=== PATIENT | female | born 1955 | race Caucasian/White ===

== ENCOUNTER 2017-06-19 16:28 | Emergency (ER) | payer OTHER ==
[~2017-06-19] VITALS: Ht 165.1 cm; Wt 74.0 kg
[2017-06-19] MEDS ORDERED: LOSARTAN POT100 MG PO (16:46)
[2017-06-19] MEDS ORDERED: CATAPRES-T0.2 MG/21 TD (16:46)
[2017-06-19 16:52] LABS: URINE BILIRUBIN - DIPSTICK NEGATIVE (NEGATIVE); URINE BLOOD DIPSTICK NEGATIVE (NEGATIVE); URINE COLOR YELLOW; URINE GLUCOSE - DIPSTICK NEGATIVE (NEGATIVE); URINE KETONE NEGATIVE (NEGATIVE); URINE NITRITE - DIPSTICK NEGATIVE (Negative); URINE PROTEIN - DIPSTICK NEGATIVE (NEG-TRACE); URINE SPECIFIC GRAVITY >=1.030; URINE UROBILINOGEN - DIPSTICK 0.2 E.U./dL (0.2)
[2017-06-19 16:54] LABS: URINE CLARITY CLEAR; URINE LEUK ESTERASE SMALL (NEGATIVE)
[2017-06-19] MEDS ORDERED: PYRIDIUM200 MG PO (16:55)
[2017-06-19] MEDS ORDERED: KEFLEX500 MG PO (16:55)
[2017-06-19 17:02] LABS: URINE RBC 0-2 RBC/hpf (0-5); URINE SQUAMOUS EPITHELIAL CELL FEW EPI/hpf (0-FEW)
[2017-06-19 17:05] VITALS: BP 149/84
== END 2017-06-19 17:05 | disposition home or self-care (01) | DRG 690 ==
LOC: ED 16:28
PROVIDERS: Emergency Medicine
DX: N39.0 Urinary tract infection, site not specified (principal); I10 Essential (primary) hypertension

== ENCOUNTER 2017-09-20 14:51 | Emergency (ER) | payer OTHER ==
[~2017-09-20] VITALS: Ht 165.1 cm; Wt 74.8 kg
[~2017-09-20 14:51] MED LIST: CATAPRES-T0.2 MG/21 TD; KEFLEX500 MG PO; LOSARTAN POT100 MG PO; PYRIDIUM200 MG PO
[2017-09-20] MEDS ORDERED: PYRIDIUM200 MG PO (15:09)
[2017-09-20] MEDS ORDERED: KEFLEX500 M1 PO (15:09)
[2017-09-20 15:20] VITALS: BP 157/84
[2017-09-20 15:24] LABS: URINE BILIRUBIN - DIPSTICK NEGATIVE (NEGATIVE); URINE BLOOD DIPSTICK SMALL (NEGATIVE); URINE COLOR YELLOW; URINE GLUCOSE - DIPSTICK NEGATIVE (NEGATIVE); URINE KETONE NEGATIVE (NEGATIVE); URINE LEUK ESTERASE TRACE (NEGATIVE); URINE NITRITE - DIPSTICK NEGATIVE (Negative); URINE PROTEIN - DIPSTICK NEGATIVE (NEG-TRACE); URINE SPECIFIC GRAVITY >=1.030; URINE UROBILINOGEN - DIPSTICK 0.2 E.U./dL (0.2)
[2017-09-20 15:40] LABS: URINE CLARITY CLOUDY
[2017-09-20 15:41] LABS: URINE BACTERIA FEW hpf; URINE RBC 25-50 RBC/hpf (0-5); URINE SQUAMOUS EPITHELIAL CELL FEW EPI/hpf (0-FEW)
== END 2017-09-20 15:20 | disposition home or self-care (01) | DRG 690 ==
LOC: ED 14:51
PROVIDERS: Emergency Medicine
DX: N39.0 Urinary tract infection, site not specified (principal); B96.20 Unspecified Escherichia coli [E. coli] as the cause of diseases classified elsewhere; R35.0 Frequency of micturition; R50.9 Fever, unspecified; R30.0 Dysuria